=== PATIENT | female | born 1970 | race Caucasian/White ===

== ENCOUNTER 2020-10-12 09:59 | Emergency (ER) | payer OTHER, SELFPAY ==
--- NOTE | ~2020-10-12 | XR_ITS ---
EXAMINATION: XR chest 1V portable DATE: 10/12/2020 10:30 INDICATION: Chest pain. Abdominal pain. TECHNIQUE: A single frontal view of the chest was obtained. COMPARISON: Chest 2 views 05/19/2014 FINDINGS: There is mild scarring at left lung apex. No pleural effusion or pneumothorax. The heart si ze is normal. IMPRESSION: 1. Stable mild scarring at left lung apex. Reviewed, dictated and finalized at location A. NE DIESEL TECHNICIAN
--- NOTE | ~2020-10-12 | CT_ITS ---
EXAMINATION: CT abdomen pelvis w con DATE: 10/12/2020 11:20 INDICATION: Abdominal pain. TECHNIQUE: Computed tomography (CT) of the abdomen and pelvis was performed with 100 mL Omnipaque-350 intravenous contrast. Automated exposure control and iterative reconstruction technique were employe d. The dose-length product was 358.26 mGy-cm. COMPARISON: 12/01/2006 FINDINGS: Mild dependent atelectasis in the bilateral lower lobes. Heart size is normal. No pericardial or pleu ral effusion. Mild intra and extrahepatic biliary ductal dilation which is within normal limits post cholecystectomy with surgical clips at the gallbladder fossa. Spleen, pancreas, right kidney and bila teral adrenal glands are normal. 3.2 cm left renal cyst. There are several surgical clips medial to t he left renal hilum. Multiple additional surgical clips in the region of the distal left ureter and u reterovesicular junction. Bladder is otherwise normal. Normal appendix. No abnormal bowel wall thicke roxana or obstruction. The uterus is not identified and has likely been surgically resected. No free in traperitoneal gas or fluid. No pathologically enlarged abdominal or pelvic lymphadenopathy. Severe lo wer lumbar spondylosis. IMPRESSION: 1. No acute intra-abdominal/pelvic process. Reviewed, dictated and finalized at location B. HASHER AND RENDERER
[2020-10-12 10:03] VITALS: BP 112/81; PULSE 68; RESP 12; TEMP 35.1; O2SAT 100
[2020-10-12 10:08] VITALS: BP 125/82; PULSE 77; RESP 22; O2SAT 100
[2020-10-12 10:11] VITALS: PULSE 90
[2020-10-12 10:16] VITALS: BP 115/88; PULSE 82; RESP 21; O2SAT 100
[2020-10-12 10:25] LABS: Basophils Absolute Auto 0.1 K/mm3 (0.0-0.1); Basophils Percent Auto 1.1 % (0.2-1.2); Eosinophils Absolute Auto 0.3 K/mm3 (0-0.3); Eosinophils Percent Auto 2.7 % (0-4.4); Hematocrit 39.1 % (37.0-47.0); Hemoglobin 13.1 g/dL (12.0-15.0); Immature Granulocyte Absolute 0.02 K/mm3 (0.00-0.031); Immature Granulocyte Percent A 0.2 % (0-0.5); Lymphocytes Absolute Auto 3.72 K/mm3 (0.9-3.2); Mean Corpuscular HGB Conc 33.5 g/dl (32-36); Mean Corpuscular Hemoglobin 30.7 pg (26-34); Mean Corpuscular Volume 91.6 fl (80-100); Mean Platelet Volume 9.8 fl (7.4-10.4); Monocytes Absolute Auto 0.4 K/mm3 (0.1-0.6); Monocytes Percent Auto 3.6 % (2.6-8.5); Neutrophils Absolute Auto 5.3 K/mm3 (1.3-6.7); Neutrophils Percent Auto 54.4 % (45.5-73.1); Platelet Count Result 281 k/mm3 (150-375); Red Blood Count 4.27 M/mm3 (4.2-5.4); Red Cell Distribution Width 13.4 % (11.5-14.5); White Blood Count 9.8 K/mm3 (4.5-10.0)
--- NOTE | 2020-10-12 10:26 | ECG_ITS ---
Measurements Intervals [place] Rate: 67 P: 54 PA: 165 QRS: 62 QRSD: 90 T: 61 QT: 375 QTc: 396 Interpretive Statements SINUS RHYTHM INCOMPLETE RIGHT BUNDLE BRANCH BLOCK BORDERLINE ECG Electronically Signed On 10-12-2020 11:41:09 COMPARISON SHOPPER by William Birch D.O.
[2020-10-12 10:33] LABS: INR 0.8; Partial Thromboplastin Time 27.5 SECONDS (22.3-36.8)
--- NOTE | 2020-10-12 10:36 | ED.CHESTPAIN ---
HPI - Chest Pain General Chief Complaint: Chest Pain Stated Complaint: chest pain/abd pain, 3-4 days ago Time Seen by Provider: 10/12/20 10:04 Source: patient and family Mode of arrival: ambulatory Limitations: no limitations History of Present Illness HPI narrative: Patient is a 50-year-old female who presents with generalized abdominal pain worse in the epigastrium for the last 5 days that is remained constant pain radiates into the chest patient notes that she has also had pain across the chest into the left chest during this period that is also remained constant patient notes history of reflux and has tried [id number] medications with minimal improvement patient notes when she eats it is worse also began taking aspirin over the last couple days but denies melena or rectal bleeding. Patient notes that after eating she typically has vomiting or diarrhea. Related Data Home Medications Medication Instructions Recorded Confirmed levothyroxine 112 mcg PO 10/12/20 Allergies Allergy/AdvReac Type Severity Reaction Status Date / Time No Known Allergies Allergy Unverified 10/01/19 15:29 Review of Systems Review of Systems: All systems reviewed & are unremarkable except as noted in HPI and below PMFSH Past Medical History Medical History (Updated 10/12/20 @ 12:19 by Gene Joyner PA-C) Coronary artery disease Gastroesophageal reflux disease Obesity Surgical History Surgical History (Updated 10/12/20 @ 10:38 by Gene Joyner PA-C) H/O cardiac catheterization History of hysterectomy Family History Family History (System 10/01/19 @ 15:29 by Marleni Dugan) Grandparent Hypertension Cerebrovascular accident Mother Family history of malignant neoplasm of breast in first degree relative Patient's mother is Social History Social History (Updated 10/12/20 @ 10:38 by Gene Joyner PA-C) Smoking status: Current every day smoker Second hand tobacco smoke exposure: No Alcohol intake: current Exam Narrative: Exam Narrative: GENERAL: Well-appearing, obese, and in no acute distress. HEAD: Normocephalic, atraumatic. EYES: PERRLA and EOMI. ENT: Nares clear, no rhinorrhea or epistaxis. Mucous membranes moist. CHEST: Clear to auscultation. No respiratory distress. No wheezes rales or rhonchi HEART: Regular rate and rhythm. No murmur heard. Normal peripheral pulses. ABDOMEN: Soft, generalized abdominal tenderness to palpation, distended, normal active bowel sounds. EXTREMITIES: Normal range of motion. No edema. SKIN: Warm, dry, no rash. NEURO: No focal deficits. Alert and oriented x3. Cranial nerves II through XII grossly intact PSYCH: Normal mood and affect. Course Course Emergency Course: Patient in the room at this time aware of case findings treatment plan diagnosis will follow with her bobbin doffer Dr. Cronin patient symptoms seem to be largely GI in nature patient will be discharged home with plan follow-up with GI and primary care felt appropriate for outpatient reevaluation given reasons to return patient is afebrile nontoxic-appearing without emesis with improvement with medications. Patient with normal vital signs and ABCs intact and stable Vital Signs Vital signs: Vital Signs Temperature 95.2 F L 10/12/20 10:03 Pulse Rate 68 10/12/20 10:03 Respiratory Rate 12 10/12/20 10:03 Blood Pressure 112/81 10/12/20 10:03 Pulse Oximetry 100 10/12/20 10:03 Temperature 95.2 F L 10/12/20 10:03 Pulse Rate 82 10/12/20 10:16 Respiratory Rate 21 H 10/12/20 10:16 Blood Pressure 115/88 10/12/20 10:16 Pulse Oximetry 100 10/12/20 10:16 MDM - Chest Pain MDM Narrative Medical decision making narrative: Patient with likely gastritis as the etiology of her symptoms with reflux given the duration of the symptoms acute coronary syndrome is felt unlikely coupled with risk ratification and without high risk changes in t
[2020-10-12 10:37] LABS: Alanine Aminotransferase 36 U/L (4-35); Albumin Level 4.2 g/dL (3.5-5.1); Alkaline Phosphatase 85 U/L (38-126); Anion Gap 10 mmol/L (8-16); Aspartate Amino Transferase 42 U/L (14-36); Bilirubin,Total 0.3 mg/dL (0.2-1.3); Blood Urea Nitrogen 13 mg/dL (7-17); Calcium 8.7 mg/dL (8.4-10.2); Carbon Dioxide 21 mmol/L (22-30); Chloride 105 mmol/L (98-107); Estimated CRCL calculation 71 ml/min; Estimated Glomerular Filt Rate > 60; Glucose 120 mg/dL (65-105); Lipase 119 U/L (23-300); Potassium 4.3 mmol/L (3.4-5.0); Sodium 136 mmol/L (137-145)
[2020-10-12 10:45] LABS: D Dimer 0.33 ug/mL (<0.48)
[2020-10-12 10:50] LABS: Troponin I < 0.012 ng/mL (0.000-0.034)
[2020-10-12] MEDS: MORPHINE SULFATE (*CRX) 4 MG/ML INJ IV PUSH (11:35)
[2020-10-12] MEDS: MAG HYDROX/AL HYDROX/SIMETH 30 ML UDC PO (11:38)
[2020-10-12] MEDS: PANTOPRAZOLE SODIUM IV 40 MG VIAL IV PUSH (11:38)
[2020-10-12] MEDS: SODIUM CHLORIDE 0.9% IV 1,000 ML 999 ML IV CONT (11:38)
[2020-10-12] MEDS: LIDOCAINE HCL 2% VISC SOLN 15 ML UDC 20 ML PO (11:38)
[2020-10-12] MEDS: ONDANSETRON INJ 4 MG/2 ML VIAL IV PUSH (11:38)
[2020-10-12 11:56] LABS: Add Urine Microscopic? YES; Appearance Urine Clear (Clear); Bilirubin Urine Negative (Negative); Blood Urine Negative (Negative); Color Urine Straw (Yellow); Glucose Urine UA Negative (Negative); Ketones Urine Negative (Negative); Leukocyte Esterase Ur Trace LEU/UL (Negative); Mucus Urine Rare /lpf; Nitrate Urine Negative (Negative); Protein Urine Negative (Negative); RBC Urine 0-2 /hpf (0-2); Specific Grav Ur 1.009 (1.001-1.035); Squamous Epithelial Cell Urine Few /hpf (Few); Urobilinogen Urine Negative mg/dL (<2.0)
[2020-10-12 12:49] VITALS: BP 110/73; PULSE 64; RESP 16; O2SAT 99
--- NOTE | 2020-10-22 08:15 | PC.NURSE ---
LATE ENTRY This note is being entered to document information to the patient's record. The following information was omitted on [10/22/20], by [Celi RUIZ stopped at 1238 on 10/13/20].
== END 2020-10-12 12:50 | disposition home or self-care (01) ==
PROVIDERS: Emergency Medicine Emergency Medical Services; Emergency Provider Emergency Medicine; PCP Emergency Medicine
DX: R10.84 Generalized abdominal pain (principal); R07.9 Chest pain, unspecified; I25.10 Atherosclerotic heart disease of native coronary artery without angina pectoris; K21.9 Gastro-esophageal reflux disease without esophagitis; E66.9 Obesity, unspecified; Z68.28 Body mass index [BMI] 28.0-28.9, adult; F17.200 Nicotine dependence, unspecified, uncomplicated; I45.10 Unspecified right bundle-branch block
CPT/HCPCS: 36415; 71045; 74177; 80048; 80076; 81001; 83690; 84484; 85025; 85380; 85610; 85730; 93005; 96361; 96374; 96375; 99284; A9270; C9113; J2270; J2405; J7030; Q9967

== ENCOUNTER 2020-12-12 10:36 | Emergency (ER) | payer OTHER, SELFPAY ==
[2020-12-12 10:44] VITALS: BP 129/81; PULSE 71; RESP 16; TEMP 36.4; O2SAT 100
[2020-12-12] MEDS: predniSONE 20 MG TABLET 80 MG PO (10:48)
[2020-12-12] MEDS: diphenhydrAMINE HCl CAP 25 MG CAPSULE PO (10:48)
--- NOTE | 2020-12-12 10:48 | ED.SKABFB ---
HPI - Skin/Abscess/Foreign Bdy General Chief complaint: Skin/Abscess/Foreign Body Stated complaint: hives Source: patient and old records reviewed Limitations: no limitations History of Present Illness HPI narrative: The overweight patient, on several meds, presents with skin eruption. 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 Her last eruption was years ago, but now she has a shorter 1 morning history of pink, raised, itchy eruption on scalp and trunk. Symptoms are mild to moderate, unrelieved with OTC preparations like Benadryl; No fever, oral involvement, S OB, wheezing. She is on H2 fredrick, PPI pending a EGD -advised she may continue these as she did not take them this morning; she discussed refill of EpiPen. Discussed with patient if she worsens to go to hospital. Related Data Home Medications Medication Instructions Recorded Confirmed famotidine 1 mg PO BID 12/12/20 12/12/20 levothyroxine 1 mcg PO DAILY 12/12/20 12/12/20 omeprazole 1 mg PO DAILY 12/12/20 12/12/20 Allergies Allergy/AdvReac Type Severity Reaction Status Date / Time No Known Allergies Allergy Verified 12/12/20 10:50 Review of Systems Review of Systems: Narrative: General/Constitutional: No weight loss,fever Eyes: N0: Redness,discharge Ears/Nose/Throat: No: Epistaxis,ear discharge Respiratory: Denies: Hemoptysis Gastrointestinal: No Vomiting, Bleeding-rectal Skin: No Lumps, REPORTS eruption Neurologic: No Focal Weakness,Sz Hematologic: Denies: Petechiae/Purpura Psychiatric: No: Suicida ideationl All Other Systems: Reviewed and Negative [facility] Past Medical History Medical History (Updated 12/12/20 @ 13:12 by Eduardo Rm MD) Coronary artery disease Gastroesophageal reflux disease Obesity Surgical History Surgical History (Updated 10/12/20 @ 10:38 by Gene Joyner PA-C) H/O cardiac catheterization History of hysterectomy Family History Family History (System 10/01/19 @ 15:29 by Marleni Dugan) Grandparent Hypertension Cerebrovascular accident Mother Family history of malignant neoplasm of breast in first degree relative Patient's mother is Social History Social History (Updated 10/12/20 @ 10:38 by Gene Joyner PA-C) Smoking status: Current every day smoker Second hand tobacco smoke exposure: No Alcohol intake: current Gender identity (if verbalized by the patient): Female Comments At time of signature, agree with nursing past medical, surgical, social and family history. There is no relevant family history pertinent to the presenting complaint Exam Narrative: Exam Narrative: General Appearance: Well-nourished/ overweight, Normocephalic Eye: PERRLA, Conjunctiva clear Ear: External ear normal Nose: Normal nose, Nare clear Mouth/Throat: Normal appearing Neck Exam: Supple Respiratory: Airway patent, No respiratory distress Musculoskeletal: Moves all extremities, Non tender Skin: Widespread blanching, polymorphic MP urticarial lesions on trunk and extremities ; warm, Dry Neurological: A&O x3 Psychiatric: Normal mood, Normal affect Course Vital Signs Vital signs: Vital Signs Temperature 97.5 F L 12/12/20 10:44 Pulse Rate 71 12/12/20 10:44 Respiratory Rate 16 12/12/20 10:44 Blood Pressure 129/81 12/12/20 10:44 Pulse Oximetry 100 12/12/20 10:44 Temperature 97.5 F L 12/12/20 10:44 Pulse Rate 71 12/12/20 10:44 Respiratory Rate 16 12/12/20 10:44 Blood Pressure 129/81 12/12/20 10:44 Pulse Oximetry 100 12/12/20 10:44 Discharge Plan Discharge Clinical Impression: Urticaria, Pruritic condition Patient Disposition: Home, Self-Care Condition: Improved Instructions: Urticaria (ED) Prescriptions: New prednisone 20 mg tablet 80 mg PO DAILY Qty: 20 RF: 0 loratadine [Claritin] 10 mg tablet 10 mg PO DAILY Qty: 20 RF:
== END 2020-12-12 11:32 | disposition home or self-care (01) ==
PROVIDERS: Emergency Provider Emergency Medicine; PCP Emergency Medicine
DX: L50.9 Urticaria, unspecified (principal); L29.9 Pruritus, unspecified; F17.210 Nicotine dependence, cigarettes, uncomplicated; I25.10 Atherosclerotic heart disease of native coronary artery without angina pectoris; K21.9 Gastro-esophageal reflux disease without esophagitis
CPT/HCPCS: 99213; A9270; G0463; J7512

== ENCOUNTER 2022-02-09 13:50 | Outpatient (CLI) | payer OTHER, SELFPAY ==
--- NOTE | ~2022-02-09 | MM_ITS ---
EXAMINATION: MM screening [place] BI w amparo HISTORY: Screening mammogram TECHNIQUE: Craniocaudal and mediolateral oblique 3-D tomosynthesis images were obtained and synthetic 2-D images were generated. CAD analysis was submitted and interpreted. COMPARISON: No prior mammogram is available for comparison at this institution. BREAST PARENCHYMAL COMPOSITION: There are scattered areas of fibroglandular density. FINDINGS: There is no evidence of suspicious mass, calcification, or architectural distortion to sugg est malignancy in either breast. There has been no suspicious interval change. IMPRESSION: 1. No mammographic evidence of malignancy. 2. Recommend routine screening mammography in one year. BI-RADS Category 1: Negative Reviewed, dictated and finalized at location A.
== END 2022-02-09 13:51 | disposition home or self-care (01) ==
LOC: ANHIMG 13:59
PROVIDERS: PCP Emergency Medicine; Visit Provider Emergency Medicine
DX: Z12.31 Encounter for screening mammogram for malignant neoplasm of breast (principal)
CPT/HCPCS: 77063; 77067

== ENCOUNTER 2022-06-13 13:14 | Emergency (ER) | payer OTHER, SELFPAY ==
[2022-06-13 13:15] VITALS: BP 144/86; PULSE 79; RESP 16; TEMP 36.6; O2SAT 99
[2022-06-13 13:37] LABS: Basophils Absolute Auto 0.1 K/mm3 (0.0-0.1); Basophils Percent Auto 0.8 % (0.2-1.2); Eosinophils Absolute Auto 0.2 K/mm3 (0-0.3); Eosinophils Percent Auto 2.2 % (0-4.4); Hematocrit 43.2 % (37.0-47.0); Immature Granulocyte Absolute 0.02 K/mm3 (0.00-0.031); Immature Granulocyte Percent A 0.2 % (0-0.5); Lymphocytes Absolute Auto 3.62 K/mm3 (0.9-3.2); Lymphocytes Percent Auto 36.1 % (18.3-44.2); Mean Corpuscular HGB Conc 32.4 g/dl (32-36); Mean Corpuscular Hemoglobin 30.6 pg (26-34); Mean Corpuscular Volume 94.3 fl (80-100); Mean Platelet Volume 9.9 fl (7.4-10.4); Monocytes Absolute Auto 0.3 K/mm3 (0.1-0.6); Monocytes Percent Auto 3.3 % (2.6-8.5); Neutrophils Absolute Auto 5.8 K/mm3 (1.3-6.7); Neutrophils Percent Auto 57.4 % (45.5-73.1); Platelet Count Result 289 k/mm3 (150-375); Red Blood Count 4.58 M/mm3 (4.2-5.4); Red Cell Distribution Width 13.6 % (11.5-14.5)
[2022-06-13 13:47] LABS: Alanine Aminotransferase 36 U/L (6-35); Albumin Level 4.9 g/dL (3.5-5.1); Alkaline Phosphatase 92 U/L (38-126); Anion Gap 12 mmol/L (8-16); Aspartate Amino Transferase 30 U/L (14-36); Bilirubin,Total 0.2 mg/dL (0.2-1.3); Blood Urea Nitrogen 11 mg/dL (7-17); Calcium 9.2 mg/dL (8.4-10.2); Carbon Dioxide 26 mmol/L (22-30); Chloride 102 mmol/L (98-107); Estimated CRCL calculation 60 ml/min; Estimated Glomerular Filt Rate > 60; Glucose 96 mg/dL (65-110); Sodium 140 mmol/L (137-145)
--- NOTE | 2022-06-13 15:16 | PC.NURSE ---
pt LWBS, D/T WAIT TIME. ASKED PT TO FOLLOW UP WITH PCP
[2022-06-13 15:19] LABS: Appearance Urine Clear (Clear); Bilirubin Urine Negative (Negative); Blood Urine Trace-lysed (Negative); Color Urine Yellow (Yellow); Glucose Urine UA Negative (Negative); Ketones Urine Negative (Negative); Leukocyte Esterase Ur Negative LEU/UL (Negative); Nitrate Urine Negative (Negative); Protein Urine Negative (Negative); Specific Grav Ur 1.015 (1.001-1.035); Urobilinogen Urine 0.2 mg/dL (<2.0); pH Urine 5.5 (5.0-9.0)
[2022-06-13 15:29] LABS: Bacteria Urine Trace /hpf; Mucus Urine Rare /lpf; RBC Urine 0-2 /hpf (0-2); Squamous Epithelial Cell Urine Occasional /hpf (Few); WBC Urine 0-3 /hpf
[2022-06-13 15:30] LABS: Add Urine Microscopic? YES
== END 2022-06-13 15:32 | disposition left against medical advice (07) ==
LOC: ANHED 15:26
PROVIDERS: Emergency Provider Emergency Medicine; PCP Emergency Medicine
DX: R10.9 Unspecified abdominal pain (principal)
CPT/HCPCS: 36415; 80053; 81001; 85025; 99199

== ENCOUNTER 2023-07-31 10:15 | Emergency (ER) | payer OTHER, SELFPAY ==
[2023-07-31 10:27] VITALS: BP 112/71; PULSE 73; RESP 16; TEMP 36; O2SAT 98
--- NOTE | 2023-07-31 10:50 | ED.SKABFB ---
HPI - Skin/Abscess/Foreign Bdy General Chief complaint: Skin/Abscess/Foreign Body Stated complaint: painful rash on back Time Seen by Provider: 07/31/23 10:39 Source: patient and RN notes reviewed Mode of arrival: ambulatory Limitations: no limitations History of Present Illness HPI narrative: Patient presents today complaining of a burning and stabbing sensation to her right upper back that started last night. She thought maybe she got bit by a bug or stung by an insect and tried some prune salve to the area without relief. Related Data Home Medications Medication Instructions Recorded Confirmed levothyroxine 112 mcg tablet 1 mcg PO DAILY 12/12/20 07/31/23 Allergies Allergy/AdvReac Type Severity Reaction Status Date / Time No Known Allergies Allergy Verified 07/31/23 10:23 Review of Systems Review of Systems: CONSTITUTIONAL: Denies body aches, fever, chills, or sweats. EYES: Denies visual changes, redness, or discharge. ENT: Denies rhinorrhea, congestion, sore throat, or otalgia. CARDIOVASCULAR: Denies chest pain, palpitations, or edema. RESPIRATORY: Denies cough or dyspnea. GASTROINTESTINAL: Denies abdominal pain, nausea, vomiting, or diarrhea. GENITOURINARY: Denies dysuria or hematuria. SKIN: Denies rash, itching, or wounds. MUSCULOSKELETAL: Denies back pain, joint pain. + pain to right upper back NEUROLOGIC: Denies headache, numbness, tingling, or weakness. PSYCH: Denies depression or anxiety. [facility] Past Medical History Medical History Coronary artery disease Gastroesophageal reflux disease Obesity Surgical History Surgical History H/O cardiac catheterization History of hysterectomy Family History Family History Grandparent Hypertension Cerebrovascular accident Mother Family history of malignant neoplasm of breast in first degree relative Patient's mother is Social History Social History Smoking status: Current every day smoker Second hand tobacco smoke exposure: No Alcohol intake: current Gender identity (if verbalized by the patient): Female Comments At time of signature, I have reviewed and agree with nursing past medical, surgical, social and family history unless otherwise noted. Please see nursing chart for further information. There is no relevant family history pertinent to the presenting complaint Exam Narrative: GENERAL: Well-appearing, well-nourished, and in no acute distress. HEAD: Normocephalic, atraumatic. EYES: EOMI. No redness or drainage. Conjunctivae normal. ENT: Mucous membranes pink and moist. NECK: Normal AROM. CHEST: No respiratory distress. EXTREMITIES: Normal range of motion. No edema. SKIN: Warm, dry, no rash. Capillary refill normal. Normal skin turgor. Skin sensitivity and tenderness to the right upper to mid back. No obvious rash noted. NEURO: No focal deficits. Alert and oriented x3. Gait steady. PSYCH: Normal affect. No signs of depression or anxiety. Course Course Level of Care: Express Care Visit Vital Signs Vital signs: Vital Signs Temperature 96.8 F L 07/31/23 10:27 Pulse Rate 73 07/31/23 10:27 Respiratory Rate 16 07/31/23 10:27 Blood Pressure 112/71 07/31/23 10:27 Pulse Oximetry 98 07/31/23 10:27 Oxygen Delivery Room Air 07/31/23 10:27 Temperature 96.8 F L 07/31/23 10:27 Pulse Rate 73 07/31/23 10:27 Respiratory Rate 16 07/31/23 10:27 Blood Pressure 112/71 07/31/23 10:27 Pulse Oximetry 98 07/31/23 10:27 Oxygen Delivery Room Air 07/31/23 10:27 Reviewed MDM - Skin/Abscess/Foreign Bdy MDM Narrative Medical decision making narrative: Patient is likely having symptoms from the shingles prodrome. Will
== END 2023-07-31 10:58 | disposition home or self-care (01) ==
PROVIDERS: Emergency Provider Nurse Practitioner; PCP Emergency Medicine
DX: B02.9 Zoster without complications (principal); I25.10 Atherosclerotic heart disease of native coronary artery without angina pectoris; K21.9 Gastro-esophageal reflux disease without esophagitis; E66.9 Obesity, unspecified; Z68.26 Body mass index [BMI] 26.0-26.9, adult
CPT/HCPCS: 99213; G0463

== ENCOUNTER 2023-10-23 14:57 | Outpatient (CLI) | payer OTHER, SELFPAY ==
--- NOTE | ~2023-10-23 | MM_ITS ---
EXAMINATION: MM screening [place] BI w amparo HISTORY: Screening mammogram, family history of breast cancer in her mother. TECHNIQUE: Craniocaudal and mediolateral oblique 3-D tomosynthesis images were obtained and synthetic 2-D images were generated. CAD analysis was submitted and interpreted. COMPARISON: 02/09/2022 BREAST PARENCHYMAL COMPOSITION: There are scattered areas of fibroglandular density. FINDINGS: No suspicious mass, calcification, or architectural distortion are identified in either belinda ast to suggest malignancy. There has been no suspicious interval change. IMPRESSION: 1. No mammographic evidence of malignancy. 2. Recommend routine screening mammography in one year. BI-RADS Category 1: Negative Reviewed, dictated and finalized at location A. BASKET MAKER
== END 2023-10-23 14:58 | disposition home or self-care (01) ==
LOC: ANHIMG 14:58
PROVIDERS: PCP Emergency Medicine; Visit Provider Emergency Medicine
DX: Z12.31 Encounter for screening mammogram for malignant neoplasm of breast (principal)
CPT/HCPCS: 77063; 77067

== ENCOUNTER 2023-11-28 10:04 | Emergency (ER) | payer OTHER, SELFPAY ==
--- NOTE | ~2023-11-28 | CT_ITS ---
EXAMINATION: CT abdomen pelvis w con DATE: 11/28/2023 11:16 INDICATION: Left flank and left lower quadrant abdominal pain with bloating TECHNIQUE: Computed tomography (CT) of the abdomen and pelvis was performed with 100 mL Omnipaque-350 intravenous contrast. Automated exposure control and iterative reconstruction technique were employe d. The dose-length product was 316.91 mGy-cm. COMPARISON: 10/12/2020 FINDINGS: Mild dependent atelectasis in the bilateral lower lobes and mild discoid atelectasis at the basilar l eft lower lobe. Heart size is normal. No pericardial or pleural effusion. Cholecystectomy clips at th e gallbladder fossa. Liver, spleen, pancreas, bilateral adrenal glands and right kidney are normal. 3 .2 cm cyst at the upper pole of the left kidney. Again seen are few surgical clips medial to the left renal hilum. Additional surgical clips in the left adnexal region. The uterus and bilateral ovaries are not visualized and have likely been surgically resected. Bladder is normal. Bowels including the appendix are normal. No free intraperitoneal gas or fluid. No pathologically enlarged abdominal or pe lvic lymphadenopathy. Severe lower lumbar spondylosis. IMPRESSION: 1. No acute intra-abdominal/pelvic process. Reviewed, dictated and finalized at location L.
[2023-11-28 10:16] VITALS: BP 92/67; PULSE 55; RESP 16; TEMP 36.4; O2SAT 100
[2023-11-28 10:46] VITALS: BP 125/92; PULSE 65; RESP 18; TEMP 36.3; O2SAT 100
[2023-11-28 10:50] LABS: Basophils Absolute Auto 0.1 K/mm3 (0.0-0.1); Basophils Percent Auto 0.8 % (0.2-1.2); Eosinophils Absolute Auto 0.3 K/mm3 (0-0.3); Eosinophils Percent Auto 3.1 % (0-4.4); Hematocrit 39.7 % (37.0-47.0); Hemoglobin 13.1 g/dL (12.0-15.0); Immature Granulocyte Absolute 0.03 K/mm3 (0.00-0.031); Immature Granulocyte Percent A 0.3 % (0-0.5); Lymphocytes Absolute Auto 3.81 K/mm3 (0.9-3.2); Lymphocytes Percent Auto 36.4 % (18.3-44.2); Mean Corpuscular Hemoglobin 30.8 pg (26-34); Mean Corpuscular Volume 93.4 fl (80-100); Mean Platelet Volume 10.1 fl (7.4-10.4); Monocytes Absolute Auto 0.5 K/mm3 (0.1-0.6); Monocytes Percent Auto 4.4 % (2.6-8.5); Neutrophils Absolute Auto 5.8 K/mm3 (1.3-6.7); Platelet Count Result 290 k/mm3 (150-375); Red Blood Count 4.25 M/mm3 (4.2-5.4); Red Cell Distribution Width 13.8 % (11.5-14.5); White Blood Count 10.5 K/mm3 (4.5-10.0)
[2023-11-28 10:53] LABS: Appearance Urine Clear (Clear); Bacteria Urine None Seen /hpf; Bilirubin Urine Negative (Negative); Color Urine Yellow (Yellow); Glucose Urine UA Negative (Negative); Ketones Urine Negative (Negative); Leukocyte Esterase Ur Negative LEU/UL (Negative); Nitrate Urine Negative (Negative); Non Pathogenic Casts 0-2; Protein Urine Negative (Negative); RBC Urine 0-2 /hpf (0-2); Specific Grav Ur 1.014 (1.001-1.035); Squamous Epithelial Cell Urine None seen /hpf (Few); Urobilinogen Urine 0.2 mg/dL (<2.0); WBC Urine 0-5 /hpf; pH Urine 5.5 (5.0-9.0)
--- NOTE | 2023-11-28 10:54 | ED.ABDPAIN ---
HPI - Abdominal Pain General Chief Complaint: Abdominal Pain Stated Complaint: left flank pain, abd bloating Time Seen by Provider: 11/28/23 10:18 Source: patient Mode of arrival: ambulatory Limitations: no limitations History of Present Illness HPI narrative: Patient is a 53-year-old female who presents the ED with report of left-sided abdominal pain. Patient reports having pain in her left flank and left-sided abdomen for the last couple of days. States pain has been worsening. Reports having an area of swelling to her left flank region as well as abdominal bloating. Reports nausea and vomiting. Reports decreased urination, dark yellow/brown urine with foul odor. Patient notes hx of frequent UTIs/kidney infections and has previously seen Urology/nephrology at [facility]. States she is on a prophylactic antibiotic for her frequent UTIs and has been taking this over the last couple of days. Denies dysuria or hematuria. Denies fevers. Denies diarrhea or constipation. Related Data Home Medications Medication Instructions Recorded Confirmed levothyroxine 112 mcg tablet 1 mcg PO DAILY 12/12/20 07/31/23 Allergies Allergy/AdvReac Type Severity Reaction Status Date / Time No Known Allergies Allergy Verified 07/31/23 10:23 Review of Systems Review of Systems: CONSTITUTIONAL: Denies fever, chills, or sweats. CARDIOVASCULAR: Denies chest pain. RESPIRATORY: Denies dyspnea. GASTROINTESTINAL: See HPI. GENITOURINARY: See HPI. MUSCULOSKELETAL: See HPI. All systems reviewed & are unremarkable except as noted in HPI and below PMFSH Past Medical History Medical History Coronary artery disease Gastroesophageal reflux disease Obesity Surgical History Surgical History H/O cardiac catheterization History of hysterectomy Family History Family History Grandparent Hypertension Cerebrovascular accident Mother Family history of malignant neoplasm of breast in first degree relative Patient's mother is Social History Social History Smoking status: Current every day smoker Second hand tobacco smoke exposure: No Alcohol intake: current Gender identity (if verbalized by the patient): Female Exam Narrative: GENERAL: Appears older than stated age, well-nourished, non-toxic, in no acute distress. HEAD: Normocephalic, atraumatic. RESPIRATORY: Airway patent, respirations nonlabored. Clear to auscultation bilaterally, no rales, rhonchi, wheezing. CARDIOVASCULAR: Regular rate and rhythm without murmurs, rubs, or gallops. ABDOMINAL: Soft, mild diffuse tenderness, more focal tenderness in LLQ, suprapubic region. Nondistended. Normoactive BS. +CVA tenderness on L appreciable swelling throughout abdomen or flank region. MUSCULOSKELETAL: Moves all extremities. No gross deformities. No midline spinal tenderness. SKIN: Warm, dry, normal color. NEURO: A&O X3. Speech clear. PSYCHIATRIC: Appropriate mood and affect. Normal interaction. Course Vital Signs Vital signs: Vital Signs Temperature 97.5 F L 11/28/23 10:16 Pulse Rate 55 L 11/28/23 10:16 Respiratory Rate 16 11/28/23 10:16 Blood Pressure 92/67 L 11/28/23 10:16 Pulse Oximetry 100 11/28/23 10:16 Oxygen Delivery Room Air 11/28/23 10:16 Temperature 97.5 F L 11/28/23 10:16 Pulse Rate 55 L 11/28/23 10:16 Respiratory Rate 16 11/28/23 10:16 Blood Pressure 92/67 L 11/28/23 10:16 Pulse Oximetry 100 11/28/23 10:16 Oxygen Delivery Room Air 11/28/23 10:16 MDM - Abdominal Pain MDM Narrative Medical decision making narrative: Patient presented to ED with several day history of left-sided abdominal/flank pain and bloating, nausea. Concerned for UTI/kid
[2023-11-28 10:55] LABS: Add Urine Microscopic? YES
[2023-11-28 11:00] LABS: Alanine Aminotransferase 38 U/L (6-35); Albumin Level 4.2 g/dL (3.5-5.1); Alkaline Phosphatase 90 U/L (38-126); Anion Gap 7 mmol/L (8-16); Aspartate Amino Transferase 40 U/L (14-36); Bilirubin,Total 0.4 mg/dL (0.2-1.3); Blood Urea Nitrogen 17 mg/dL (7-17); Calcium 9.2 mg/dL (8.4-10.2); Carbon Dioxide 22 mmol/L (22-30); Chloride 108 mmol/L (98-107); Estimated Glomerular Filt Rate > 60; Glucose 92 mg/dL (65-110); Lipase 104 U/L (23-300); Potassium 4.3 mmol/L (3.4-5.0); Sodium 137 mmol/L (137-145)
[2023-11-28 11:01] VITALS: BP 129/81; PULSE 53; RESP 12; O2SAT 97
[2023-11-28] MEDS: SODIUM CHLORIDE 0.9% IV 1,000 ML 999 ML IV CONT (11:25)
[2023-11-28] MEDS: MORPHINE SULFATE (*CRX) 2 MG/ML INJ IV PUSH (11:25)
[2023-11-28] MEDS: ONDANSETRON INJ 4 MG/2 ML VIAL IV PUSH (11:26)
[2023-11-28 11:31] VITALS: BP 122/77; PULSE 62; RESP 16; TEMP 36.6; O2SAT 98
[2023-11-28 11:46] VITALS: BP 128/77; PULSE 67; RESP 16; O2SAT 100
[2023-11-28 11:46] LABS: Lactic Acid Reflex 0.5 mmol/L (0.7-2.0)
[2023-11-28 12:30] VITALS: BP 126/70; PULSE 76; RESP 16; TEMP 36.4; O2SAT 98
[2023-11-28] MEDS: KETOROLAC 30 MG/ML VIAL (*BKC) IV PUSH (12:57)
== END 2023-11-28 13:10 | disposition home or self-care (01) ==
PROVIDERS: Emergency Provider Physician Assistant; PCP Emergency Medicine
DX: R10.9 Unspecified abdominal pain (principal); R11.0 Nausea; I25.10 Atherosclerotic heart disease of native coronary artery without angina pectoris; K21.9 Gastro-esophageal reflux disease without esophagitis; E66.9 Obesity, unspecified; Z90.710 Acquired absence of both cervix and uterus; F17.200 Nicotine dependence, unspecified, uncomplicated
CPT/HCPCS: 36415; 74177; 80053; 81001; 83605; 83690; 85025; 96361; 96374; 96375; 99284; J1885; J2270; J2405; J7030; Q9967